=== PATIENT | female | born 1975 | race Caucasian/White ===

== ENCOUNTER 2019-01-15 18:35 | Emergency (ER) | payer BC ==
[2019-01-15] MEDS ORDERED: Sodium Chloride 0.9% 50 ML IV ONE (18:50)
[2019-01-15] MEDS ORDERED: Iopamidol 755 Mg/ML 75 ML Bottle IVPUSH ONE (18:52)
[2019-01-15] MEDS ORDERED: HYDROmorphone 1 MG/ML Syringe IVPUSH ONE (18:56)
[2019-01-15] MEDS ORDERED: Famotidine 20 MG/2 ML SDV IVPUSH ONE (18:56)
[2019-01-15] MEDS ORDERED: Ondansetron 4 MG/2 ML SDV IVPUSH ONE (18:56)
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
[2019-01-15 19:14] VITALS: BP 150/83
[2019-01-15 19:21] LABS: ANION GAP 16.2 mmol/L (5-15); CHLORIDE,CL 99 mmol/L (98-115); SODIUM,NA 137 mmol/L (136-145)
--- NOTE | 2019-01-15 19:45 | CT ---
[id number] CT/CT Abdomen Pelvis W IV EXAM: CT Abdomen Pelvis W IV CLINICAL DATA: CHRONIC PANCREATITIS, abdominal pain. COMPARISON STUDY: Multiple priors, most recent from September 2016. FINDINGS: Coarse dystrophic appearing calcification throughout the pancreas, consistent with sequela of acute pancreatitis. In addition, there is edema in the region of the pancreatic head and a portion of the body. Acute on chronic exacerbation of pancreatitis is most likely. No pseudocyst or other complicating features are identified. Liver, gallbladder, spleen, adrenal glands, and kidneys are unremarkable. Moderate colonic stool burden. Correlate for constipation. No evidence of a small bowel obstruction. Appendix is normal. Numerous heterogeneously enhancing slightly hypodense masses throughout the uterus, some of which are exophytic. Findings are similar to prior examinations and most consistent with fibroids. Adnexal regions are unremarkable. Advanced L5-S1 degenerative disc disease with [id number] articulation IMPRESSION: Findings most consistent with a mild acute exacerbation of pancreatitis on the background of chronic pancreatitis, described above. Other findings are described above. Peter Hudson MD 01/15/19 1944 Thank you for allowing us to participate in the care of your patient.
[2019-01-15] MEDS ORDERED: Metoclopramide 10 MG Tab PO ONE (19:57)
== END 2019-01-15 20:15 | disposition home or self-care (01) ==
LOC: KA.ED 18:35
DX: K85.90 Acute pancreatitis without necrosis or infection, unspecified (principal); I10 Essential (primary) hypertension; F32.9 Major depressive disorder, single episode, unspecified; Z79.899 Other long term (current) drug therapy
CPT/HCPCS: 36415; 74177; 80053; 82150; 83690; 85025; 96374; 96375; 99284; A9270; J1170; J2405; J3490; J7050; Q9967

== ENCOUNTER 2023-12-14 11:41 | Emergency (ER) | payer BC ==
[2023-12-14 11:53] VITALS: BP 123/84; PULSE 89
[2023-12-14] MEDS: LORazepam 2 MG/ML SDV IVPUSH ONE (12:23)
[2023-12-14] MEDS: Sodium Chloride 0.9% 10 ML Syringe FLUSH PRN (12:24)
[2023-12-14] MEDS: methylPREDNISolone Sodium Succinate 125 MG/2 ML SDV IVPUSH ONE (12:26)
[2023-12-14] MEDS: Ketorolac 30 MG/ML SDV IVPUSH ONE (12:29)
== END 2023-12-14 13:10 | disposition home or self-care (01) ==
LOC: KA.ED 11:41
DX: M62.830 Muscle spasm of back (principal); M54.6 Pain in thoracic spine; I10 Essential (primary) hypertension; F17.210 Nicotine dependence, cigarettes, uncomplicated; Z79.899 Other long term (current) drug therapy
CPT/HCPCS: 72070; 96374; 96375; 99283-25; J1885; J2060; J2930; J3490